=== PATIENT | male | born 1990 | race Hispanic/Latino ===

== ENCOUNTER 2022-02-27 17:08 | Emergency (ER) | payer BC ==
[~2022-02-27] VITALS: Ht 170.2 cm; Wt 95.3 kg
[2022-02-27] MEDS ORDERED: SODIUM CHLORIDE 0.9% 1000ML 1,000 ML IV STA (17:33)
[2022-02-27] MEDS ORDERED: ADENOSINE 6MG/2ML 3 ML ONE (17:39)
[2022-02-27] MEDS ORDERED: ADENOSINE 6 MG/2 ML VIAL IV ONE (17:45)
[2022-02-27] MEDS ORDERED: ONDANSETRON HCL INJ 2MG/ML 2ML 2 MG/ML VIAL IV PRN (17:45)
[2022-02-27 20:14] VITALS: BP 126/83
== END 2022-02-27 20:16 | disposition short-term general hospital (02) ==
LOC: FSED 17:28
DX: I47.1 Supraventricular tachycardia (principal); R07.9 Chest pain, unspecified; R77.8 Other specified abnormalities of plasma proteins; F17.200 Nicotine dependence, unspecified, uncomplicated
CPT/HCPCS: 71045; 80053; 82553; 84484; 85025; 99284; J0153; J2405; 93005